=== PATIENT | male | born 1985 | race Caucasian/White ===

== ENCOUNTER 2023-06-24 17:50 | Emergency (ER) | payer OTHER ==
[2023-06-24 17:57] VITALS: BP 137/90; PULSE 82; RESP 18; TEMP 98.1; BMI 31.5
[2023-06-24] MEDS ORDERED: TRANEXAMIC ACID 1000 MG/10 ML VIAL IVPUSH ONE (18:40)
[2023-06-24] MEDS ORDERED: TRANEXAMIC ACID 1000 MG/10 ML VIAL ONE (18:44)
[2023-06-24] MEDS ORDERED: ACETAMINOPHEN 1000 MG/100 ML BAG IVPB ONE (19:26)
[2023-06-24] MEDS ORDERED: SODIUM CHLORIDE 0.9% 500 ML INFUS.BAG IV ONE (19:26)
[2023-06-24] MEDS ORDERED: ACETAMINOPHEN INJECTION 100 ML IVPB ONE (19:43)
[2023-06-24 19:46] LABS: BASO % 0.7 % (0-2.0); HEMATOCRIT 46.9 % (35.4-49); HEMOGLOBIN 15.6 GM/dL (11.7-16.9); MCH 29.1 pg (25.7-33.7); MCHC 33.3 g/dl (32.0-35.9); MEAN CELL VOLUME 87.3 fl (80-96); MEAN PLT VOLUME 7.9 fl (7.5-11.1); MONO % 6.6 % (3.8-10.2); NEUT % 77.7 % (42.8-82.8); PLATELET COUNT 394 10^3/uL (134-434); RBC 5.37 M/mm3 (4.00-5.60); RDW 13.2 % (11.9-15.9); WHITE BLOOD COUNT 14.5 K/mm3 (4.0-10.0)
[2023-06-24 19:52] LABS: INR 1.16 (0.83-1.09); PROTHROMBIN TIME (PATIENT) 13.4 SEC (9.7-13.0)
[2023-06-24 19:55] LABS: ACTIVATED PTT 36.3 SECONDS (25.2-36.5)
[2023-06-24 20:13] LABS: POTASSIUM 4.6 mmol/L (3.5-5.1)
[2023-06-24 20:16] LABS: CALCIUM 9.4 mg/dL (8.5-10.1)
[2023-06-24 20:17] LABS: ALBUMIN 4.4 g/dl (3.4-5.0); BLOOD UREA NITROGEN 23.6 mg/dL (7-18)
[2023-06-24 20:22] LABS: BILIRUBIN,TOTAL 0.8 mg/dL (0.2-1); TOT PROT 8.4 g/dl (6.4-8.2)
== END 2023-06-24 20:39 | disposition left against medical advice (07) ==
LOC: JER 17:50
PROC: 3E033NZ Introduction of Analgesics, Hypnotics, Sedatives into Peripheral Vein, Percutaneous Approach (ICD-10-PCS; principal; 2023-06-24)
PROC: 3E033GC Introduction of Other Therapeutic Substance into Peripheral Vein, Percutaneous Approach (ICD-10-PCS; 2023-06-24)
DX: T81.31XA Disruption of external operation (surgical) wound, not elsewhere classified, initial encounter (principal); L76.21 Postprocedural hemorrhage of skin and subcutaneous tissue following a dermatologic procedure
CPT/HCPCS: 36415; 80053; 85025; 85610; 85730